=== PATIENT | male | born 1935 | race Caucasian/White ===

== ENCOUNTER → 2017-03-24 | Day surgery (SDC) | payer OTHER ==
[~2017-03-24] MED LIST: ACETAMINOPHEN 1000 MG/100 ML 100 ML IV ONE; BP med; BUPIVACAINE/EPINEPHRINE 0.5% 50 ML VIAL ONE; KETOROLAC TROMETHAMINE 30 MG/ML (IVP) VIAL IV PUSH ONE; MIDAZOLAM HCL 2 MG/2 ML VIAL ONE; ONDANSETRON HCL 4 MG/2 ML VIAL IV PUSH ONE; PROPOFOL 500 MG/50 ML BTL IV ONE; ROSU5 PO; TAMS0.4C67 PO; TAMS5CAP PO; TRAM50TA PO; ceFAZolin INJ 1,000 MG VIAL ONE; cholesterol
--- NOTE | 2017-03-24 12:48 | TN ---
cc: VENU HUGHES M.D. DATE OF SURGERY 03/24/2017 PREOPERATIVE DIAGNOSIS Bilateral inguinal hernia left greater than right. POSTOPERATIVE DIAGNOSIS Bilateral inguinal hernia left greater than right. PROCEDURE Repair of bilateral inguinal hernia laparoscopic with mesh. ANESTHESIA General SURGEON Dr. Hughes INDICATIONS This is a pleasant 81-year-old gentleman who has fairly symptomatic inguinal hernias. Plans were made for above. PROCEDURE The patient taken to the operating room, placed in the supine position. After anesthesia, his abdomen was prepped with Betadine, time-out was done. We make an incision just below the umbilicus. We dissect down to the abdominal fascia, get in the preperitoneal space. The dissecting balloon was then placed in the preperitoneal space and pumped up with 40 pumps on the balloon. This was all done under videoscopic surveillance. The balloon trocar was removed. The dissecting balloon was removed and then the balloon trocar was placed and the preperitoneal space was insufflated up to 14 mmHg pressure. We first directed our attention to the left side where a moderate-sized hernia sac is seen indirect type which is completely reduced with a cord lipoma. A piece of polypropylene mesh 3 x 6 cut with a slit, we obtained a posterior window and the mesh was then placed and secured to the pubic tubercle, Shiraz's ligament and out laterally along the anterior abdominal wall. Tails were then secured to themselves to the anterior abdominal wall avoiding the epigastric vessel. The tacks on the lateral were placed to avoid the femoral cutaneous nerves. We then direct our attention to the right side. There was a smaller hernia somewhat scarred in. We were able to completely reduce this. He has indirect and a direct component. Cord lipoma is removed. We then place a similar cut piece of mesh securing to the pubic tubercle to the posterior window and tacking it to the anterior abdominal wall avoiding epigastric vessel. After this was done, we then checked our dissection site. There was excellent hemostasis. We placed 20 cc of Marcaine in the preperitoneal space. The trocars removed. The fascia at the umbilicus is closed with a 0 Vicryl and skin is closed with 4-0 Vicryl. Steri-Strips applied. Sterile bandage applied. The patient tolerated the procedure well and had no immediate postop complications. MD BATOOL Henderson/DJL /12:35 PM /12:39 PM
== END | disposition home or self-care (01) ==
LOC: ESDC 08:34
PROVIDERS: ATTEND Surgery
DX: K40.20 Bilateral inguinal hernia, without obstruction or gangrene, not specified as recurrent (principal)
CPT/HCPCS: 00840; 49650; C1727; C1781; J0131; J0690; J1885; J2250; J2405; J3010

== ENCOUNTER 2017-03-25 05:21 | Emergency (ER) | payer OTHER ==
[~2017-03-25] VITALS: Ht 177.8 cm; Wt 82.0 kg
[~2017-03-25 05:21] MED LIST changes: -ACETAMINOPHEN 1000 MG/100 ML 100 ML IV ONE; -BP med; -BUPIVACAINE/EPINEPHRINE 0.5% 50 ML VIAL ONE; -KETOROLAC TROMETHAMINE 30 MG/ML (IVP) VIAL IV PUSH ONE; -MIDAZOLAM HCL 2 MG/2 ML VIAL ONE; -ONDANSETRON HCL 4 MG/2 ML VIAL IV PUSH ONE; -PROPOFOL 500 MG/50 ML BTL IV ONE; -TAMS5CAP PO; -ceFAZolin INJ 1,000 MG VIAL ONE; -cholesterol
[2017-03-25 05:28] VITALS: BP 178/86; PULSE 70; RESP 18; TEMP 97.6; O2SAT 97
[2017-03-25] MEDS ORDERED: TAMS5CAP PO (05:35)
--- NOTE | 2017-03-25 05:46 | PD ---
HPI Chief Complaint: Complaint Time Seen by Provider: 05:39 Travel History International Travel<30 days: No Contact w/Intl Traveler<30days: No Traveled to known affect area: No History of Present Illness HPI The patient is a 81-year-old male that had surgery (bilateral inguinal hernia repair under laparoscopic technique) under general anesthesia on Thursday- yesterday. He has not been able to urinate since around 6 PM yesterday. He feels bladder distention. This has happened 2 times in the past with general anesthesia. He states he usually regains bladder function a day or 2 later. He denies any significant pain other than the pain from distention. He denies any fever or flank pain. He denies any nausea, vomiting or diarrhea. PFSH Past Medical History High Cholesterol: Yes Diminished Hearing: No Genitourinary: Yes (ENLARGED PROSTATE) Integumentary: Yes (GRAFTS) Immunizations Current: Yes PNEUMOCCOCAL Vaccine (Year): 2 Past Surgical History Abdominal Surgery: Yes (SCAR TISSUE REMOVED FROM LOWER INTESTINE- 2008 ) Other Surgery: Yes (SKIN GRAFTS) Social History Alcohol Use: No Tobacco Use: No Substance Use: No Allergies-Medications (Allergen,Severity, Reaction): Coded Allergies: No Known Allergies (Verified , 03/25/17) Reported Meds & Prescriptions Reported Meds & Active Scripts Active Reported Flomax (Tamsulosin HCl) 0.4 Mg Cap 0.4 Mg PO HS Review of Systems Except as stated in HPI: all other systems reviewed are Neg Physical Exam Narrative GENERAL: Well-nourished, well-developed patient in moderate to severe distress with his bladder distention. His vital signs show temperature 97.6 and blood pressure 178/86 but otherwise normal. SKIN: Focused skin assessment warm/dry. HEAD: Normocephalic. EYES: No scleral icterus. No injection or drainage. NECK: Supple, trachea midline. No JVD or lymphadenopathy. CARDIOVASCULAR: Regular rate and rhythm without murmurs, gallops, or rubs. RESPIRATORY: Breath sounds equal bilaterally. No accessory muscle use. GASTROINTESTINAL: Abdomen soft, non-tender except for the bladder area which causes discomfort with any pressure, nondistended. The bladder is distended. MUSCULOSKELETAL: No cyanosis, or edema. BACK: Nontender without obvious deformity. No CVA tenderness. Data Data Last Documented VS Vital Signs Date Time Temp Pulse Resp B/P (MAP) Pulse Ox O2 Delivery O2 Flow Rate FiO2 03/25/17 06:35 70 18 98 03/25/17 05:28 97.6 Orders Orders Complete Blood Count With Diff (03/25/17 05:39) Basic Metabolic Panel (Bmp) (03/25/17 05:39) Urinalysis - C+S If Indicated (03/25/17 05:39) Urinary Catheter Insert/Apply (03/25/17 05:48) Labs Laboratory Tests Test 03/25/17 05:45 03/25/17 06:19 Blood Urea Nitrogen 10 MG/DL Creatinine 0.91 MG/DL Random Glucose 102 MG/DL Calcium Level 8.3 MG/DL Sodium Level 136 MEQ/L Potassium Level 3.9 MEQ/L Chloride Level 102 MEQ/L Carbon Dioxide Level 27.6 MEQ/L Anion Gap 6 MEQ/L Estimat Glomerular Filtration Rate 80 ML/MIN MDM Medical Decision Making Medical Screen Exam Complete: Yes Emergency Medical Condition: Yes Medical Record Reviewed: Yes Interpretation(s) Over 700 cc was recovered from the bladder after the Perez was put in. The urine showed 100 protein, large occult blood but is otherwise negative and culture is not indicated. Differential Diagnosis Bladder atony from anesthesia medications, prostatic urethral obstruction, urethral stricture Narrative Course The patient has bladder atony from anesthesia. This is happened 2 times before and this appears to be the third time. The patient states that every time he gets General Anesthesia this happens. He states that he will regain function of his bladder and about a day or 2 we will leave the catheter in for several days. He will then return to emergency department and have the catheter removed. Diagnosis Primary Impression: Bladder atony Additional Instructions: As we discussed, keep the Perez catheter in for a day or 2 until you feel that your bladder has "woken up". At that time return to the emergency department and we will remove the Perez catheter. Disposition: 01 DISCHARGE HOME Condition: Stable Murali Cotto MD Mar 25, 2017 05:46
[2017-03-25 06:31] LABS: BLOOD, URINE LARGE (NEG); GLUCOSE,URINE NEG (NEG); KETONE, URINE NEG (NEG); NITRITE,URINE NEG (NEG)
[2017-03-25 06:40] LABS: MUCUS URINE FEW /lpf (OCC); URINE COLOR YELLOW (YELLW/STRAW)
[2017-03-25 06:41] LABS: BACTERIA, URINE OCC /hpf; COMMENT (UR) CULT NOT INDICATED; CULTURE IF INDICATED CULT NOT INDICATED; RBC, URINE INNUM /hpf (0-3); SQUAMOUS EPITHELIAL CELL URINE 0-5 /hpf (0-5)
== END 2017-03-25 06:48 | disposition home or self-care (01) ==
LOC: PHED 05:21
DX: N32.89 Other specified disorders of bladder (principal); E78.00 Pure hypercholesterolemia, unspecified; N40.1 Benign prostatic hyperplasia with lower urinary tract symptoms
CPT/HCPCS: 51702; 80048; 81001

== ENCOUNTER 2017-03-26 08:31 | Emergency (ER) | payer OTHER ==
[~2017-03-26] VITALS: Ht 177.8 cm; Wt 81.0 kg
[~2017-03-26 08:31] MED LIST changes: -ROSU5 PO; -TAMS0.4C67 PO; +TAMS5CAP PO; -TRAM50TA PO
[2017-03-26 08:36] VITALS: BP 175/77; PULSE 67; RESP 16; TEMP 97.8; O2SAT 96
--- NOTE | 2017-03-26 08:49 | PD ---
HPI Chief Complaint: Complaint Time Seen by Provider: 08:40 Travel History International Travel<30 days: No Contact w/Intl Traveler<30days: No Traveled to known affect area: No History of Present Illness HPI This is a 81-year-old male who had a bilateral inguinal hernia repair on March [address] Hughes who had acute urinary retention following his surgery. He had a Perez catheter placed by Dr. Cotto on March 25. He is here because he wants to try to get the catheter taken out. He feels like he is able to void. He's had trouble with urinary retention in the past. He takes Flomax in the evenings. PFSH Past Medical History High Cholesterol: Yes Diminished Hearing: No Genitourinary: Yes (ENLARGED PROSTATE) Integumentary: Yes (GRAFTS) Immunizations Current: Yes Influenza Vaccination: No PNEUMOCCOCAL Vaccine (Year): 2 ?: Not Past Surgical History Abdominal Surgery: Yes (SCAR TISSUE REMOVED FROM LOWER INTESTINE- 2008 ) Other Surgery: Yes (SKIN GRAFTS. HERNIA REPAIR) Social History Alcohol Use: No Tobacco Use: No Substance Use: No Allergies-Medications (Allergen,Severity, Reaction): Coded Allergies: No Known Allergies (Verified , 03/26/17) Reported Meds & Prescriptions Reported Meds & Active Scripts Active Reported Flomax (Tamsulosin HCl) 0.4 Mg Cap 0.4 Mg PO HS Review of Systems General / Constitutional: No: Fever, Chills Cardiovascular: No: Chest Pain or Discomfort Physical Exam Narrative GENERAL: Well-appearing, no acute distress, nontoxic SKIN: Warm and dry. HEAD: Atraumatic. Normocephalic. ENT: No nasal bleeding or discharge. Moist mucous membranes MUSCULOSKELETAL: No obvious deformities. NEUROLOGICAL: Awake and alert. No obvious cranial nerve deficits. Moving all extremities. PSYCHIATRIC: Appropriate mood and affect; insight and judgment normal. Data Data Last Documented VS Vital Signs Date Time Temp Pulse Resp B/P (MAP) Pulse Ox O2 Delivery O2 Flow Rate FiO2 03/26/17 08:36 97.8 67 16 175/77 (109) 96 Room Air MDM Medical Decision Making Medical Screen Exam Complete: Yes Emergency Medical Condition: Yes Differential Diagnosis Urinary retention Narrative Course This is a 81-year-old male who presents to the emergency department having had a catheter placed after inguinal hernia repair. He is here this morning requesting the catheter out. It Hasn't been in that long that he is very insistent that we take it out. He otherwise has no complaints. He is well- appearing. Pt. will be advised to follow up with his urologist. Diagnosis Primary Impression: Urinary retention Patient Instructions: General Instructions Additional Instructions: If you develop fever, persistent vomiting, back pain, or inability to eat return to the emergency department as your urine infection may have progressed to a kidney infection. Complete your antibiotics as prescribed. Stay well hydrated with Gatorade or water. Followup with your primary care physician in 2-3 days if your symptoms have not resolved. Med/Other Pt SpecificInfo: No Change to Meds Disposition: 01 DISCHARGE HOME Condition: Stable Isa Arredondo MD Mar 26, 2017 08:48
== END 2017-03-26 08:56 | disposition home or self-care (01) ==
LOC: PHED 08:31
DX: N40.1 Benign prostatic hyperplasia with lower urinary tract symptoms (principal); R33.8 Other retention of urine; E78.00 Pure hypercholesterolemia, unspecified
CPT/HCPCS: 99281

== ENCOUNTER 2017-03-30 20:30 | Emergency (ER) | payer OTHER ==
[~2017-03-30] VITALS: Ht 177.8 cm; Wt 81.1 kg
[2017-03-30 20:32] VITALS: BP 211/88; PULSE 61; RESP 20; TEMP 98.4; O2SAT 98
[2017-03-30] MEDS ORDERED: cholesterol (20:50)
[2017-03-30] MEDS ORDERED: BP med (20:50)
--- NOTE | 2017-03-30 20:56 | PD ---
HPI Chief Complaint: Complaint Time Seen by Provider: 20:40 Travel History International Travel<30 days: No Contact w/Intl Traveler<30days: No Traveled to known affect area: No History of Present Illness HPI dr deshpande surgeon....patient had bilateral inguinal hernia repair a few days ago, over the last 2 days has noted bruising moving down from abdomen to "balls " and they are getting "larger". per patient just a "little" discomfort no major testicular pain. PFSH Past Medical History High Cholesterol: Yes Diminished Hearing: No Genitourinary: Yes (ENLARGED PROSTATE) Integumentary: Yes (GRAFTS) Immunizations Current: Yes Tetanus Vaccination: > 5 Years Influenza Vaccination: No PNEUMOCCOCAL Vaccine (Year): 2 Past Surgical History Abdominal Surgery: Yes (SCAR TISSUE REMOVED FROM LOWER INTESTINE- 2008 ) Other Surgery: Yes (SKIN GRAFTS. HERNIA REPAIR) Social History Alcohol Use: No Tobacco Use: No Substance Use: No Allergies-Medications (Allergen,Severity, Reaction): Coded Allergies: No Known Allergies (Verified , 03/30/17) Reported Meds & Prescriptions Reported Meds & Active Scripts Active Reported [cholesterol] [BP med] Flomax (Tamsulosin HCl) 0.4 Mg Cap 0.4 Mg PO HS Review of Systems Except as stated in HPI: all other systems reviewed are Neg Genitourinary: Positive: Other (see hpi) Physical Exam Narrative GENERAL: SKIN: Warm and dry. HEAD: Atraumatic. Normocephalic. EYES: Pupils equal and round. No scleral icterus. No injection or drainage. ENT: No nasal bleeding or discharge. Mucous membranes pink and moist. NECK: Trachea midline. No JVD. CARDIOVASCULAR: Regular rate and rhythm. RESPIRATORY: No accessory muscle use. Clear to auscultation. Breath sounds equal bilaterally. GASTROINTESTINAL: Abdomen soft, non-tender, nondistended. laparoscopic wounds healing well and without drainage. scrotum is echymotic but intact cremasteric reflex, normal testicular lie, no testicular tenderness to palpation MUSCULOSKELETAL: Extremities without clubbing, cyanosis, or edema. No obvious deformities. NEUROLOGICAL: Awake and alert. No obvious cranial nerve deficits. Motor grossly within normal limits. Five out of 5 muscle strength in the arms and legs. Normal speech. PSYCHIATRIC: Appropriate mood and affect; insight and judgment normal. Data Data Last Documented VS Vital Signs Date Time Temp Pulse Resp B/P (MAP) Pulse Ox O2 Delivery O2 Flow Rate FiO2 03/30/17 20:32 98.4 61 20 211/88 (129) 98 Orders Orders Us Testicles W Doppler (03/30/17 20:48) MDM Medical Decision Making Medical Screen Exam Complete: Yes Emergency Medical Condition: Yes Medical Record Reviewed: Yes Differential Diagnosis testicular torsion v hydrocele v scrotal echymosis post op Narrative Course after ultrasound, no e/o torsion, epididymitis or major hydrocele. patient will be d/c with gravity dependant echymosis post op from inguinal hernia repair Diagnosis Primary Impression: Bruise of scrotum Qualified Codes: S30.22XS - Contusion of scrotum and testes, sequela Patient Instructions: Ecchymosis (ED), General Instructions Disposition: 01 DISCHARGE HOME Condition: Stable Orion Olvera MD Mar 30, 2017 20:56
--- NOTE | 2017-03-30 21:55 | RADRPT ---
EXAM DATE/TIME: 03/30/2017 21:16 [facility] COMPARISON: No previous studies available for comparison. INDICATIONS : Testicle pain. MEDICAL HISTORY : Hypercholesterolemia. Benign prostatic hyperplasia, (BPH) SURGICAL HISTORY : Left leg surgery. Hernia repair. ENCOUNTER: Initial ACUITY: 4 - 6 days PAIN SCORE: 5/10 LOCATION: Bilateral testicles. MEASUREMENTS: RIGHT TESTICLE: 3.8 x 2.5 x 2.8cm LEFT TESTICLE: 3.1 x 2.1 x 3.3cm FINDINGS: RIGHT TESTICLE: Homogeneous echotexture without intra or extratesticular mass. Blood flow is symmetric and within no rmal limits. There is no significant hydrocele. There are multiple small varices. Multiple small cyst s are noted in the head of the epididymis. LEFT TESTICLE: Homogeneous echotexture without intra or extratesticular mass. Blood flow is symmetric and within no rmal limits. There is no significant hydrocele. There are multiple small varices. Multiple small cyst s are noted in the head of the epididymis. SCROTUM: Small calcification is noted in the right side of the scrotum. CONCLUSION: 1. The testicles are intrinsically normal in appearance. 2. Lateral varices. 3. Multiple small cysts in the head of the epididymis left greater than right. Mic Silverio MD on March 30, 2017 at 21:50 Board Certified Radiologist. This report was verified electronically.
[2017-03-30 22:07] VITALS: BP 188/90
== END 2017-03-30 22:18 | disposition home or self-care (01) ==
LOC: PHED 20:30
DX: N99.821 Postprocedural hemorrhage of a genitourinary system organ or structure following other procedure (principal); E78.00 Pure hypercholesterolemia, unspecified; Z98.890 Other specified postprocedural states; Z87.438 Personal history of other diseases of male genital organs; Z87.2 Personal history of diseases of the skin and subcutaneous tissue
CPT/HCPCS: 76870; 93975

== ENCOUNTER 2017-07-19 01:05 | Emergency (ER) | payer OTHER ==
[~2017-07-19] VITALS: Ht 177.8 cm; Wt 85.0 kg
[~2017-07-19 01:05] MED LIST changes: +BP med; +cholesterol
[2017-07-19 01:12] VITALS: BP 214/91; PULSE 54; RESP 20; TEMP 97.4; O2SAT 97
[2017-07-19 01:25] VITALS: BP 179/60
[2017-07-19 01:41] LABS: BILIRUBIN, URINE NEG (NEG); BLOOD, URINE NEG (NEG); GLUCOSE,URINE NEG (NEG); KETONE, URINE NEG (NEG); NITRITE,URINE NEG (NEG); URINE LEUKOCYTE ESTERASE NEG (NEG)
[2017-07-19 01:49] LABS: URINE COLOR STRAW (YELLW/STRAW)
[2017-07-19 01:50] LABS: RBC, URINE 0-3 /hpf (0-3); SQUAMOUS EPITHELIAL CELL URINE 0-5 /hpf (0-5); WBC, URINE 0-2 /hpf (0-5)
--- NOTE | 2017-07-19 03:28 | PD ---
HPI Chief Complaint: Complaint Time Seen by Provider: 01:13 Travel History International Travel<30 days: No Contact w/Intl Traveler<30days: No Traveled to known affect area: No History of Present Illness HPI This is a 81-year-old male who presents to the emergency department with a history of BPH with increasing difficulty urinating for a week. He says his stream has been very light and he feels pressure in his lower abdomen, positive , mild, associated with urinary frequency. He is required Perez catheters in the past. He is still able to urinate but not much. He denies any fevers or chills. PFSH Past Medical History High Cholesterol: Yes Diminished Hearing: No Genitourinary: Yes (ENLARGED PROSTATE) Integumentary: Yes (GRAFTS) Immunizations Current: Yes Tetanus Vaccination: > 5 Years Influenza Vaccination: No PNEUMOCCOCAL Vaccine (Year): 2 Past Surgical History Abdominal Surgery: Yes (SCAR TISSUE REMOVED FROM LOWER INTESTINE- 2008 ) Other Surgery: Yes (SKIN GRAFTS. HERNIA REPAIR) Social History Alcohol Use: No Tobacco Use: No Substance Use: No Allergies-Medications (Allergen,Severity, Reaction): Coded Allergies: No Known Allergies (Verified Adverse Reaction, Unknown, 07/19/17) Reported Meds & Prescriptions Reported Meds & Active Scripts Active Reported [cholesterol] [BP med] Flomax (Tamsulosin HCl) 0.4 Mg Cap 0.4 Mg PO HS Review of Systems Except as stated in HPI: all other systems reviewed are Neg Physical Exam Narrative GENERAL:Well appearing, no acute distress SKIN: Focused skin assessment warm and dry. HEAD: Atraumatic. Normocephalic. EYES: Pupils equal and round. No injection or drainage. ENT: Moist mucous membranes NECK: Trachea midline. CARDIOVASCULAR: Regular rate and rhythm. No murmur appreciated. RESPIRATORY: Clear to auscultation. Breath sounds equal bilaterally. GASTROINTESTINAL: Abdomen soft, mildly tender to palpation in the suprapubic region without rebound or guarding. MUSCULOSKELETAL: No obvious deformities. NEUROLOGICAL: Awake and alert. No obvious cranial nerve deficits. Moving all extremities. PSYCHIATRIC: Appropriate mood and affect; insight and judgment normal. Data Data Last Documented VS Vital Signs Date Time Temp Pulse Resp B/P (MAP) Pulse Ox O2 Delivery O2 Flow Rate FiO2 07/19/17 01:25 179/60 (99) 12/24/17 01:12 97.4 54 20 97 Orders Orders Urinalysis - C+S If Indicated (07/19/17 01:34) Ed Poc Ultrasound (07/19/17 ) Urinary Catheter Insert/Apply (07/19/17 02:48) Labs Laboratory Tests Test 07/19/17 01:09 Urine Color STRAW Urine Turbidity CLEAR Urine pH 6.0 Urine Specific [place] 1.007 Urine Protein NEG mg/dL Urine Glucose (UA) NEG mg/dL Urine Ketones NEG mg/dL Urine Occult Blood NEG Urine Nitrite NEG Urine Bilirubin NEG Urine Leukocyte Esterase NEG Urine RBC 0-3 /hpf Urine WBC 0-2 /hpf Urine Squamous Epithelial Cells 0-5 /hpf Urine Bacteria NONE /hpf Microscopic Urinalysis Comment CULT NOT INDICATED MDM Medical Decision Making Medical Screen Exam Complete: Yes Emergency Medical Condition: Yes Interpretation(s) urinalysis negative for infection Differential Diagnosis Acute urinary retention, BPH, urinary tract infection Narrative Course This is a 81-year-old male who presents to the emergency department with difficulty urinating and abdominal discomfort. [id number] ultrasound demonstrates a distended bladder. Perez catheter was placed which drained 550 cc of urine. I recommended the patient keep the Perez catheter and that he is traveling and says this won't be possible. He is still urinating some. Perez catheter was removed and he was advised to follow-up with Dr. Vaughan as soon as possible. Procedures Procedure Narrative poc us: distended bladder Diagnosis Primary Impression: Urinary retention due to benign prostatic hyperplasia Patient Instructions: General Instructions Additional Instructions: If you develop severe abdominal pain or inability to urinate return to the emergency department. Follow up with Dr. Vaughan as soon as possible. Med/Other Pt SpecificInfo: No Change to Meds Disposition: 01 DISCHARGE HOME Condition: Stable Isa Arredondo MD Jul 19, 2017 03:28
[2017-07-19 03:29] VITALS: BP 205/86
== END 2017-07-19 03:36 | disposition home or self-care (01) ==
LOC: PHED 01:05
DX: N40.1 Benign prostatic hyperplasia with lower urinary tract symptoms (principal); R33.8 Other retention of urine; E78.00 Pure hypercholesterolemia, unspecified
CPT/HCPCS: 51702; 81001

== ENCOUNTER 2017-11-03 00:27 | Observation (INO) | payer OTHER ==
[2017-11-03] VITALS (23 sets, daily range): BP systolic 139–213; BP diastolic 64–93; PULSE 42–68; RESP 16–25; TEMP 96–98.1; O2SAT 96–100
[~2017-11-03] VITALS: Ht 152.4 cm; Wt 73.1 kg
--- NOTE | 2017-11-03 00:56 | PD ---
HPI Chief Complaint: Complaint Time Seen by Provider: 00:52 Travel History International Travel<30 days: No Contact w/Intl Traveler<30days: No Traveled to known affect area: No History of Present Illness HPI The patient is an 82-year-old male that complaints of left arm weakness for about 15 minutes today. After the 15 minutes he has complete strength. He is right-hand dominant. He denies any left leg weakness. He denies any headache. He states he did not wake up with this, his symptoms began as he was eating dinner. He also has some blurred vision in both eyes which has been going on for weeks and got slightly worse tonight. He did not take any aspirin. PFSH Past Medical History High Cholesterol: Yes Diminished Hearing: No Genitourinary: Yes (ENLARGED PROSTATE) Integumentary: Yes (GRAFTS) Immunizations Current: Yes PNEUMOCCOCAL Vaccine (Year): 2 Past Surgical History Abdominal Surgery: Yes (SCAR TISSUE REMOVED FROM LOWER INTESTINE- 2008 ) Other Surgery: Yes (SKIN GRAFTS. HERNIA REPAIR) Social History Alcohol Use: No Tobacco Use: No Substance Use: No Allergies-Medications (Allergen,Severity, Reaction): Coded Allergies: No Known Allergies (Verified Allergy, Unknown, 11/03/17) Reported Meds & Prescriptions Reported Meds & Active Scripts Active Reported Atorvastatin (Atorvastatin Calcium) 40 Mg Tab 40 Mg PO HS Proscar (Finasteride) 5 Mg Tab 5 Mg PO DAILY Do not crush. Felodipine ER (Felodipine) 5 Mg Zulma 5 Mg PO DAILY Macrobid (Nitrofurantoin Monoh/Nitrofur Macro) 100 Mg Cap 100 Mg PO BID Review of Systems Except as stated in HPI: all other systems reviewed are Neg Physical Exam Narrative GENERAL: The patient is alert, oriented 3 in no apparent distress. His vital signs show blood pressure 196/84 but otherwise are normal. SKIN: Focused skin assessment warm/dry. HEAD: Atraumatic. Normocephalic. EYES: Pupils equal and round. No scleral icterus. No injection or drainage. Pupils equal react light extraocular movements are normal. ENT: No nasal bleeding or discharge. Mucous membranes pink and moist. NECK: Trachea midline. No JVD. CARDIOVASCULAR: Regular rate and rhythm. No murmur appreciated. RESPIRATORY: No accessory muscle use. Clear to auscultation. Breath sounds equal bilaterally. GASTROINTESTINAL: Abdomen soft, non-tender, nondistended. Hepatic and splenic margins not palpable. MUSCULOSKELETAL: No obvious deformities. No clubbing. No cyanosis. No edema. NEUROLOGICAL: Awake and alert. No obvious cranial nerve deficits. Motor grossly within normal limits. Normal speech. Bilateral handgrips are normal, trapezius testing is normal bilaterally. Good pulses are present on the left radial area. The left hand shows good warmth and good color. PSYCHIATRIC: Appropriate mood and affect; insight and judgment normal. Data Data Last Documented VS Vital Signs Date Time Temp Pulse Resp B/P (MAP) Pulse Ox O2 Delivery O2 Flow Rate FiO2 11/03/17 02:09 50 16 186/71 (109) 98 Room Air 11/03/17 00:32 98.1 Orders Orders Complete Blood Count With Diff (11/03/17 00:52) Basic Metabolic Panel (Bmp) (11/03/17 00:52) Ct Brain W/O Iv Contrast(Rout) (11/03/17 00:52) Electrocardiogram (11/03/17 02:03) Place In Observation (11/03/17 ) Vital Signs (Adult) Q2HX12,Q4H (11/03/17 02:24) Nih Stroke Scale - Nihss .Daily (11/03/17 02:24) Neuro Checks Q2HX12,Q4H (11/03/17 02:24) Notify Dr: Other (11/03/17 02:24) Remove Urinary Catheter .ONCE (11/03/17 02:24) Ot Request For Service (11/03/17 02:24) Pt Request For Service (11/03/17 02:24) Case Management Consult (11/03/17 ) Activity Oob Ad Ariadna (11/03/17 02:24) Nursing Bedside Swallow Assess .ONCE (11/03/17 02:24) Scd Bilateral/Knee High JHONNY.QSHIFT (11/03/17 02:24) Diet Npo (11/03/17 Breakfast) Complete Blood Count With Diff (11/04/17 06:00) Hemoglobin (Hgb) A1c (11/03/17 02:24) Basic Metabolic Panel (Bmp) (11/04/17 06:00) Lipid Profile (11/04/17 06:00) Echo 2d Comp With Doppler (11/03/17 ) ^ Hold Medication (11/03/17 02:24) Sodium Chloride 0.9% Flush (Ns Flush) (11/03/17 09:00) Sodium Chloride 0.9% Flush (Ns Flush) (11/03/17 02:30) Aspirin (Aspirin) (11/03/17 09:00) Bedside Glucose JHONNY.CSUGAR (11/03/17 02:24) ^ Discontinue Insulin Orders (11/03/17 02:24) Insulin Aspart Supplemtl Scale (Novolog (11/03/17 08:00) Dextrose 50% In Sarath (Vial) Inj (D50w (Vi (11/03/17 02:30) Glucagon Inj (Glucagon Inj) (11/03/17 02:30) Commission Clerk / Telemetry JHONNY.Q8H (11/03/17 02:24) Consult Stroke Navigator (11/03/17 ) Heparin Inj (Heparin Inj) (11/03/17 06:00) Aspirin (Aspirin) (11/03/17 02:30) Admit Order (Ed Use Only) (11/03/17 02:27) Troponin I (11/03/17 01:30) Labs Laboratory Tests Test 11/03/17 01:30 White Blood Count 6.1 TH/MM3 Red Blood Count 4.57 MIL/MM3 Hemoglobin 13.2 GM/DL Hematocrit 39.2 % Mean Corpuscular Volume 85.8 FL Mean Corpuscular Hemoglobin 28.8 PG Mean Corpuscular Hemoglobin Concent 33.6 % Red Cell Distribution Width 14.5 % Platelet Count 216 TH/MM3 Mean Platelet Volume 7.5 FL Neutrophils (%) (Auto) 55.9 % Lymphocytes (%) (Auto) 23.0 % Monocytes (%) (Auto) 11.0 % Eosinophils (%) (Auto) 9.5 % Basophils (%) (Auto) 0.6 % Neutrophils # (Auto) 3.4 TH/MM3 Lymphocytes # (Auto) 1.4 TH/MM3 Monocytes # (Auto) 0.7 TH/MM3 Eosinophils # (Auto) 0.6 TH/MM3 Basophils # (Auto) 0.0 TH/MM3 CBC Comment DIFF FINAL Differential Comment Blood Urea Nitrogen 20 MG/DL Creatinine 0.93 MG/DL Random Glucose 92 MG/DL Calcium Level 8.5 MG/DL Sodium Level 139 MEQ/L Potassium Level 3.9 MEQ/L Chloride Level 106 MEQ/L Carbon Dioxide Level 26.3 MEQ/L Anion Gap 7 MEQ/L Estimat Glomerular Filtration Rate 78 ML/MIN Troponin I LESS THAN 0.02 NG/ML MDM Medical Decision Making Medical Screen Exam Complete: Yes Emergency Medical Condition: Yes Medical Record Reviewed: Yes Interpretation(s) The CBC is normal. The basic metabolic profile shows a BUN of 20, GFR of 78 but is otherwise unremarkable. The EKG shows sinus rhythm and no acute ST elevation or depression. Differential Diagnosis TIA, conversion reaction, venous insufficiency, arterial insufficiency, CVA Narrative Course The patient possibly has a TIA. The patient states his left arm did not "fall asleep". It had sudden onset of symptoms and the strength came back somewhat gradually. I discussed the patient with Dr. Silva, he will be admitted to her. He will get aspirin. Physician Communication Physician Communication I discussed the patient with Dr. Silva. Diagnosis Primary Impression: TIA (transient ischemic attack) Admitting Information Admitting Physician Requests: Admit Murali Cotto MD Nov 03, 2017 00:56
[2017-11-03 01:39] LABS: AUTOMATED NEUTROPHIL # 3.4 TH/MM3 (1.8-7.7); BASOPHIL % 0.6 % (0.0-2.0); EOSINOPHIL # 0.6 TH/MM3 (0-0.4); EOSINOPHIL % 9.5 % (0.0-4.0); HEMATOCRIT 39.2 % (39.0-51.0); HEMOGLOBIN 13.2 GM/DL (13.0-17.0); LYMPHOCYTE # 1.4 TH/MM3 (1.0-4.8); MEAN CELL VOLUME 85.8 FL (80.0-100.0); MEAN CORPUSCULAR HEMOGLOBIN 28.8 PG (27.0-34.0); MEAN CORPUSCULAR HGB CONC 33.6 % (32.0-36.0); MEAN PLATELET VOLUME 7.5 FL (7.0-11.0); MONOCYTE # 0.7 TH/MM3 (0-0.9); NEUT % 55.9 % (16.0-70.0); PLATELET COUNT 216 TH/MM3 (150-450); RED BLOOD COUNT 4.57 MIL/MM3 (4.50-5.90); RED CELL DISTRIBUTION WIDTH 14.5 % (11.6-17.2); WHITE BLOOD COUNT 6.1 TH/MM3 (4.0-11.0)
[2017-11-03 01:51] LABS: CHLORIDE 106 MEQ/L (98-107); SODIUM (NA) 139 MEQ/L (136-145)
[2017-11-03 01:54] LABS: CALCIUM 8.5 MG/DL (8.5-10.1)
[2017-11-03 01:55] LABS: BICARBONATE 26.3 MEQ/L (21.0-32.0); BLOOD UREA NITROGEN 20 MG/DL (7-18); GLUCOSE,RANDOM 92 MG/DL (74-106)
[2017-11-03 01:58] LABS: CREATININE 0.93 MG/DL (0.60-1.30); GLOMERULAR FILTRATION RATE 78 ML/MIN (>89)
--- NOTE | 2017-11-03 02:03 | RADRPT ---
EXAM DATE/TIME: 11/03/2017 01:12 [facility] COMPARISON: No previous studies available for comparison. INDICATIONS : Evaluate for cerebrovascular accident. Upper left extremity weakness. RADIATION DOSE: 58.13 CTDIvol (mGy) MEDICAL HISTORY : None SURGICAL HISTORY : None. ENCOUNTER: Initial ACUITY: 1 day PAIN SCALE: 0/10 LOCATION: cranial TECHNIQUE: Multiple contiguous axial images were obtained of the head. Using automated exposure control and adj ustment of the mA and/or kV according to patient size, radiation dose was kept as low as reasonably a chievable to obtain optimal diagnostic quality images. DICOM format image data is available electro nically for review and comparison. FINDINGS: CEREBRUM: The ventricles are normal for age. No evidence of midline shift, mass lesion, hemorrhage or acute in farction. No extra-axial fluid collections are seen. POSTERIOR FOSSA: The cerebellum and brainstem are intact. The 4th ventricle is midline. The cerebellopontine angle i s unremarkable. EXTRACRANIAL: The visualized portion of the orbits is intact. SKULL: The calvaria is intact. No evidence of skull fracture. CONCLUSION: No acute intracranial disease. Jaspreet Petersen MD on November 03, 2017 at 2:01 Board Certified Radiologist. This report was verified electronically.
[2017-11-03] MEDS ORDERED: DEXTROSE 50% IN WATER 50 ML VIAL(D50) IV PUSH PRN (02:30)
[2017-11-03] MEDS ORDERED: SODIUM CHLORIDE 0.9% FLUSH 10 ML FLUSH IV FLUSH PRN (02:30)
[2017-11-03] MEDS ORDERED: ASPIRIN 325 MG TAB PO ONE (02:30)
[2017-11-03] MEDS ORDERED: GLUCAGON 1 MG/ML VIAL OTHER PRN (02:30)
[2017-11-03] MEDS ORDERED: PROS5TAB PO (02:44)
[2017-11-03] MEDS ORDERED: FELO5TAB PO (02:44)
[2017-11-03] MEDS ORDERED: ATOR40TA16 PO (02:44)
[2017-11-03] MEDS ORDERED: MACR100C2 PO (02:44)
[2017-11-03 03:01] LABS: TROPONIN I LESS THAN 0.02 NG/ML (0.02-0.05)
[2017-11-03] MEDS: HEPARIN SODIUM - SQ 10,000 UNITS/ML VIAL SQ SCH ×3 (05:40→21:01)
--- NOTE | 2017-11-03 07:35 | EKG ---
Date Performed: 11/03/2017 Time Performed: 02:22:22 PTAGE: 82 years EKG: Sinus rhythm MODERATE INTRAVENTRICULAR CONDUCTION DELAY NONSPECIFIC T-WAVE ABNORMALITY BORDERLINE ECG No signific ant change from prior electrocardiogram. PREVIOUS TRACING : 11/30/2008 17.26 DOCTOR: Mathieu Christianson Interpretating Date/Time 11/03/2017 07:35:23
[2017-11-03] MEDS: INSULIN ASPART SUPPLEMENTAL SCALE SQ SCH ×4 (08:00→21:00)
[2017-11-03] MEDS: ASPIRIN 325 MG TAB PO SCH (08:58)
[2017-11-03] MEDS: SODIUM CHLORIDE 0.9% FLUSH 10 ML FLUSH IV FLUSH SCH ×2 (08:58→21:01)
--- NOTE | 2017-11-03 10:08 | HHI.HP ---
[facility] Primary Care Physician Non-Staff Admission Diagnosis TIA Diagnoses: Chief Complaint: Left arm weakness Travel History International Travel<30 Days: No Contact w/Intl Traveler <30 Da: No Traveled to Known Affected Are: No History of Present Illness 82-year-old white male being admitted for suspected transient ischemic attack. Patient was in his usual state of health until sometime yesterday when he was eating a meal and suddenly noted having substantial left arm weakness, felt his arm drop and described it as a weight. He was unable to feed himself with his left arm. Denies having any leg deficits or any slurred speech or any facial droop. Denies having any acute vision changes. CT scan in the emergency room is negative for any acute issues. Review of Systems Except as stated in HPI: all other systems reviewed are Neg Past Family Social History Past Medical History Hyperlipidemia, BPH, inguinal hernias, arthritis Allergies: Coded Allergies: No Known Allergies (Verified Allergy, Unknown, 11/03/17) Family History Unspecified cancer in the family Social History Denies smoking or alcohol. 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 Physical Exam Vital Signs Vital Signs Date Time Temp Pulse Resp B/P (MAP) Pulse Ox O2 Delivery O2 Flow Rate FiO2 11/03/17 06:43 54 20 164/69 (100) 96 11/03/17 05:19 48 21 182/81 (114) 11/03/17 04:50 49 11/03/17 04:13 53 22 189/82 (117) 11/03/17 04:10 98.0 57 20 213/93 (133) 98 11/03/17 03:59 56 16 176/71 (106) 98 11/03/17 03:10 68 16 179/84 (115) 100 Room Air 11/03/17 02:09 50 16 186/71 (109) 98 Room Air 11/03/17 00:32 98.1 59 18 196/84 (121) 99 Physical Exam VS: afebrile GENERAL: Lying in bed, awake, no acute distress SKIN: Warm and dry. EYES: Pupils equal and round. No scleral icterus. No injection or drainage. ENT: No nasal bleeding or discharge. Mucous membranes pink and moist. CARDIOVASCULAR: Regular rate and rhythm. no murmurs RESPIRATORY: No accessory muscle use. Clear to auscultation. Breath sounds equal bilaterally. GASTROINTESTINAL: Abdomen soft, non-tender, nondistended. Extremities: No clubbing, cyanosis, or edema. No obvious deformities. MUSCULOSKELETAL: grossly intact ROM with 5/5 strength in upper and lower extremities proximally; adequate muscle bulk and tone for age and habitus NEUROLOGICAL: Awake and alert. No obvious cranial nerve deficits. No facial droop nor slurred speech noted. Intact symmetrical sensation to light finger touch over face, proximal arms, and feet. Diminished but symmetrical patellar reflexes bilaterally. PSYCHIATRIC: Appropriate mood and affect; insight and judgment normal. Laboratory Laboratory Tests Test 11/03/17 01:30 White Blood Count 6.1 Red Blood Count 4.57 Hemoglobin 13.2 Hematocrit 39.2 Mean Corpuscular Volume 85.8 Mean Corpuscular Hemoglobin 28.8 Mean Corpuscular Hemoglobin Concent 33.6 Red Cell Distribution Width 14.5 Platelet Count 216 Mean Platelet Volume 7.5 Neutrophils (%) (Auto) 55.9 Lymphocytes (%) (Auto) 23.0 Monocytes (%) (Auto) 11.0 Eosinophils (%) (Auto) 9.5 Basophils (%) (Auto) 0.6 Neutrophils # (Auto) 3.4 Lymphocytes # (Auto) 1.4 Monocytes # (Auto) 0.7 Eosinophils # (Auto) 0.6 Basophils # (Auto) 0.0 CBC Comment DIFF FINAL Differential Comment Blood Urea Nitrogen 20 Creatinine 0.93 Random Glucose 92 Calcium Level 8.5 Sodium Level 139 Potassium Level 3.9 Chloride Level 106 Carbon Dioxide Level 26.3 Anion Gap 7 Estimat Glomerular Filtration Rate 78 Troponin I LESS THAN 0.02 Result Diagram: 11/03/170 11/03/17129 Imaging Last Impressions Head CT 11/03/17 005 Signed Impressions: Service Date/Time: Friday, November 03, 2017 01:12 - CONCLUSION: No acute intracranial disease. MD Ramya Grey VTE Risk Assessment Caprini VTE Risk Assessment: Mod/High Risk (score >= 2) Caprini Risk Assessment Model Point Value = 1 Point Value = 2 Point Value = 3 Point Value = 5 Age 41-60 Minor surgery BMI > 25 kg/m2 Swollen legs Varicose veins or History of unexplained or recurrent spontaneous Oral contraceptives or hormone replacement Sepsis (< 1 month) Serious lung disease, including pneumonia (< 1 month) Abnormal pulmonary function Acute myocardial infarction Congestive heart failure (< 1 month) History of inflammatory bowel disease Medical patient at bed rest Age 61-74 Arthroscopic surgery Major open surgery (> 45 min) Laparoscopic surgery (> 45 min) Malignancy Confined to bed (> 72 hours) Immobilizing plaster cast Central venous access Age >= 75 History of VTE Family history of VTE Factor V Leiden Prothrombin [id number] Lupus anticoagulant Anticardiolipin antibodies Elevated serum homocysteine Heparin-induced thrombocytopenia Other congenital or acquired thrombophilia Stroke (< 1 month) Elective arthroplasty Hip, pelvis, or leg fracture Acute spinal cord injury (< 1 month) Prophylaxis Regimen Total Risk Factor Score Risk Level Prophylaxis Regimen 0-1 Low Early ambulation 2 Moderate Order ONE of the following: *Sequential Compression Device (SCD) *Heparin 5000 units SQ BID 3-4 Higher Order ONE of the following medications: *Heparin 5000 units SQ TID *Enoxaparin/Lovenox 40 mg SQ daily (WT < 150 kg, CrCl > 30 mL/min) *Enoxaparin/Lovenox 30 mg SQ daily (WT < 150 kg, CrCl > 10-29 mL/min) *Enoxaparin/Lovenox 30 mg SQ BID (WT < 150 kg, CrCl > 30 mL/min) AND/OR *Sequential Compression Device (SCD) 5 or more Highest Order ONE of the following medications: *Heparin 5000 units SQ TID (Preferred with Epidurals) *Enoxaparin/Lovenox 40 mg SQ daily (WT < 150 kg, CrCl > 30 mL/min) *Enoxaparin/Lovenox 30 mg SQ daily (WT < 150 kg, CrCl > 10-29 mL/min) *Enoxaparin/Lovenox 30 mg SQ BID (WT < 150 kg, CrCl > 30 mL/min) AND *Sequential Compression Device (SCD) Assessment and Plan Assessment and Plan Transient ischemic attack -Continue Lipitor and aspirin -CT head is negative. Independently reviewed EKG shows normal sinus rhythm, no A. fib -Echocardiogram, MRI brain, carotid ultrasounds -PT/OT -permissive HTN BPH - finasteride Anthony Coleman MD Nov 03, 2017 10:07
--- NOTE | 2017-11-03 12:56 | RADRPT ---
EXAM DATE/TIME: 11/03/2017 11:35 [facility] COMPARISON: No previous studies available for comparison. INDICATIONS : Transient ischemic attack. MEDICAL HISTORY : Hypercholesterolemia. Hypertension. Arthritis. SURGICAL HISTORY : Double hernia repair. Scar tissue removed from lower intestine. Right hand surgery. Arthroscopy, bila teral knee. Left knee replacement. Skin graft. ENCOUNTER: Initial ACUITY: 1 day PAIN SCORE: 0/10 LOCATION: Bilateral neck PEAK SYSTOLIC VELOCITIES (cm/sec): ICA/CCA RATIO: Right: 0.9 Left: 1.6 ICA: Right: 89 Left: 149 CCA: Right: 104 Left: 95 ECA: Right: 94 Left: 196 VERTEBRAL: Right: 50 antegrade Left: 59 antegrade Elevated flow velocities and ICA/CCA ratios have been found to correlate with increased degrees of vessel stenosis, calculated as percentage of diameter relative to a normal segment of distal ICA/CCA FINDINGS: RIGHT CAROTID: There is plaque at the common carotid artery and carotid bulb region. The waveforms are within irene l limits. LEFT CAROTID: There is plaque at the common carotid artery and carotid bulb region. There is elevated peak systoli c velocity in the left internal carotid artery. The waveforms are within normal limits. VERTEBRAL ARTERIES: Antegrade flow is seen in both vertebral arteries. MISCELLANEOUS: None. CONCLUSION: Plaques seen in the common carotid and carotid bulb regions bilaterally the more proximal left. There is elevated peak systolic velocity in left internal carotid artery. A mild stenosis may present. The carotid system could be better evaluated with a CTA of the neck. Rick Simpson MD on November 03, 2017 at 12:53 Board Certified Radiologist. This report was verified electronically.
--- NOTE | 2017-11-03 16:40 | ECHRPT ---
Indication: CVA/TIA CONCLUSIONS Technically very difficult study. Grossly left ventricular function appears to be normal. Regional wall motion abnormalities cannot be excluded. Wall thickness is measured at the upper limits of normal. Normal left ventricular size. The aortic valve is not well visualized. There is trace tricuspid valve regurgitation. The estimated pulmonary arterial pressure is 24 mmHg. BP: / HR: Rhythm: Technical Quality: FINDINGS LEFT VENTRICLE Technically very difficult study. Grossly left ventricular function appears to be normal. Regional wall motion abnormalities cannot be excluded. Wall thickness is measured at the upper limits of normal. Normal left ventricular size. RIGHT VENTRICLE Normal right ventricular size and systolic function. LEFT ATRIUM The left atrial size is normal. RIGHT ATRIUM The right atrial size is normal. ATRIAL SEPTUM Normal atrial septal thickness without atrial level shunting by limited color doppler interrogation. AORTA The aortic root and proximal ascending aorta are normal in size on limited imaging. MITRAL VALVE Structurally normal mitral valve. No mitral valve stenosis or regurgitation. AORTIC VALVE The aortic valve is not well visualized. TRICUSPID VALVE There is trace tricuspid valve regurgitation. The estimated pulmonary arterial pressure is 24 mmHg. PULMONARY VALVE The pulmonary valve is not well visualized. VESSELS The inferior vena cava is normal in size. PERICARDIUM No pericardial effusion. Jayden Barrett MD (Electronically Signed) Final Date:03 November 2017 16:39
[2017-11-03 17:36] LABS: HEMOGLOBIN A1C 5.8 % (4.3-6.0)
[2017-11-03] MEDS ORDERED: IOHEXOL 350 MG/ML 10 ML VIAL (for RAD DIAG) IVCONTRAST ONE (18:35)
[2017-11-03] MEDS ORDERED: ACETAMINOPHEN/HYDROcodone 325 MG/5 MG TAB PO ONE (23:00)
--- NOTE | 2017-11-03 23:49 | RADRPT ---
EXAM DATE/TIME: 11/03/2017 18:20 [facility] COMPARISON: US CAROTID ARTERIES, November 03, 2017, 11:35. INDICATIONS : Upper left extremity weakness. Follow up carotid ultrasound. IV CONTRAST: 75 cc Omnipaque 350 (iohexol) IV RADIATION DOSE: 42.22 CTDIvol (mGy) MEDICAL HISTORY : None SURGICAL HISTORY : None. ENCOUNTER: Initial ACUITY: 2 days PAIN SCALE: 0/10 LOCATION: neck Elevated flow velocities and ICA/CCA ratios have been found to correlate with increased degrees of vessel stenosis, calculated as percentage of diameter relative to a normal segment of distal ICA/CCA. TECHNIQUE: Volumetric scanning was performed using a multirow detector CT scanner. The data was post processed with a variety of visualization algorithms including full-volume maximum intensity projection, multip lanar sliding thin-slab reformation, curved-planar reformation, and surface-rendering techniques. Us ing automated exposure control and adjustment of the mA and/or kV according to patient size, radiatio n dose was kept as low as reasonably achievable to obtain optimal diagnostic quality images. DICOM f ormat image data is available electronically for review and comparison. FINDINGS: AORTIC ARCH: There is a three-vessel origin of the great vessels from the aorta. No evidence of ostial narrowing. RIGHT CAROTID: The common carotid artery is intact. Mild plaque within the right proximal internal carotid artery/bu lb. No significant stenosis. The external carotid artery is intact. LEFT CAROTID: The common carotid artery is intact. Mild to moderate plaque within the left bulb/proximal internal c arotid artery suggesting 40-50 % stenosis The external carotid artery is intact. VERTEBRALS: The vertebral arteries have a symmetric diameter. No stenotic lesions are seen. CONCLUSION: 1. No hemodynamically significant stenosis in either carotid artery. 2. Mild narrowing of the left internal carotid artery suggesting 40-50% stenosis. Jaspreet Petersen MD on November 03, 2017 at 23:44 Board Certified Radiologist. This report was verified electronically.
[2017-11-04] VITALS: BP 177/79; PULSE 61; RESP 20; TEMP 96.6; O2SAT 97
[2017-11-04 04:00] VITALS: BP 134/65; PULSE 48; RESP 20; TEMP 96; O2SAT 97
[2017-11-04] MEDS: HEPARIN SODIUM - SQ 10,000 UNITS/ML VIAL SQ SCH (05:11)
[2017-11-04 06:29] LABS: AUTOMATED NEUTROPHIL # 2.7 TH/MM3 (1.8-7.7); BASOPHIL % 0.6 % (0.0-2.0); EOSINOPHIL # 0.4 TH/MM3 (0-0.4); EOSINOPHIL % 8.7 % (0.0-4.0); HEMATOCRIT 37.9 % (39.0-51.0); HEMOGLOBIN 12.4 GM/DL (13.0-17.0); LYMPH % 26.5 % (9.0-44.0); LYMPHOCYTE # 1.3 TH/MM3 (1.0-4.8); MEAN CELL VOLUME 86.8 FL (80.0-100.0); MEAN CORPUSCULAR HEMOGLOBIN 28.5 PG (27.0-34.0); MEAN CORPUSCULAR HGB CONC 32.8 % (32.0-36.0); MONOCYTE # 0.5 TH/MM3 (0-0.9); NEUT % 53.2 % (16.0-70.0); PLATELET COUNT 211 TH/MM3 (150-450); RED BLOOD COUNT 4.37 MIL/MM3 (4.50-5.90); RED CELL DISTRIBUTION WIDTH 14.1 % (11.6-17.2); WHITE BLOOD COUNT 4.9 TH/MM3 (4.0-11.0)
[2017-11-04 06:44] LABS: CALCIUM 8.6 MG/DL (8.5-10.1)
[2017-11-04 06:45] LABS: BICARBONATE 24.4 MEQ/L (21.0-32.0)
[2017-11-04 06:49] LABS: CREATININE 0.86 MG/DL (0.60-1.30)
[2017-11-04] MEDS: INSULIN ASPART SUPPLEMENTAL SCALE SQ SCH ×2 (08:00→12:00)
[2017-11-04] MEDS: ASPIRIN 325 MG TAB PO SCH (08:16)
[2017-11-04] MEDS: SODIUM CHLORIDE 0.9% FLUSH 10 ML FLUSH IV FLUSH SCH (08:16)
[2017-11-04 08:28] VITALS: BP 158/69; PULSE 52; RESP 15; TEMP 96.3; O2SAT 98
[2017-11-04 10:22] LABS: CHOLESTEROL/ HDL RATIO 3.87 RATIO; HDL CHOLESTEROL 34.8 MG/DL (40.0-60.0)
[2017-11-04] MEDS ORDERED: ASPI81TA23 PO (11:44)
--- NOTE | 2017-11-04 11:44 | HHI.DCPOC ---
Discharge Care Plan Diagnosis: (1) TIA (transient ischemic attack) Goals to Promote Your Health * To prevent worsening of your condition and complications * To maintain your health at the optimal level Directions to Meet Your Goals Take your medications as prescribed Follow your dietary instruction Follow activity as directed Keep your appointments as scheduled Take your immunizations and boosters as scheduled If your symptoms worsen call your PCP, if no PCP go to Urgent Care Center or Emergency Room Smoking is Dangerous to Your Health. Avoid second hand smoke Call the 24-hour hour crisis hotline for domestic abuse at Anthony Cloeman MD Nov 04, 2017 11:44
--- NOTE | 2017-11-04 11:47 | HHI.PR ---
Subjective Remarks Nursing denies any deterioration since last night. However patient says he could not do MRI due to severe claustrophobia, wants to get MRI done as an outpatient at a facility that has a bigger machine. Patient feels fine, wants to go home. Objective Vital Signs Date Time Temp Pulse Resp B/P (MAP) Pulse Ox O2 Delivery O2 Flow Rate FiO2 11/04/17 08:28 96.3 52 15 158/69 (98) 98 11/04/17 04:00 96.0 48 20 134/65 (88) 97 11/04/17 00:00 96.6 61 20 177/79 (111) 97 11/03/17 20:00 96.0 66 20 163/89 (113) 98 11/03/17 18:14 16 11/03/17 16:22 98.1 48 25 159/74 (102) 11/03/17 16:00 44 11/03/17 15:00 42 11/03/17 14:00 44 11/03/17 13:21 42 11/03/17 13:21 42 16 152/76 (101) 99 11/03/17 12:00 44 I/O 11/03/17 11/03/17 11/03/17 11/04/17 11/04/17 11/04/17 06:59 14:59 22:59 06:59 14:59 22:59 Intake Total 30 ml 240 ml 120 ml Output Total 300 ml 1140 ml Balance 30 ml -300 ml -900 ml 120 ml Intake Oral 30 ml 240 ml 120 ml Output Urine Total 300 ml 1140 ml # Voids 1 3 2 # Bowel Movements 0 0 0 Result Diagram: 11/04/17 0440 11/04/17 0440 Objective Remarks No facial droop, no slurred speech, 5 out of 5 proximal upper extremity strength bilaterally, ambulating without difficulty. A/P Assessment and Plan CTA of the carotids is unremarkable for any significant hemodynamic stenosis or they have any surgical intervention. Echo was also unremarkable. We will discharge the patient on baby aspirin, to continue his home Lipitor. Patient is amenable to getting MRI of the brain as an outpatient under the care of his PCP. Will discharge patient a prescription for a Holter monitor the results of which he can relate to his primary care provider near [place]. Patient has met maximal benefit from hospitalization and is clinically stable for discharge. Anthony Coleman MD Nov 04, 2017 11:47
[2017-11-04] MEDS ORDERED: ATORVASTATIN 40 MG TAB PO ONE (12:00)
[2017-11-04 12:47] VITALS: BP 142/70; PULSE 60; RESP 16; TEMP 96.7; O2SAT 99
[2017-11-04] MEDS ORDERED: amLODIPine BESYLATE 5 MG TAB PO SCH (13:15)
[2017-11-04] MEDS ORDERED: ATORVASTATIN 40 MG TAB PO SCH (21:00)
== END 2017-11-04 13:49 | disposition home or self-care (01) ==
LOC: PHED 00:27 → PHEDA 02:28 → PHICU 04:10 → PH3A 16:30
PROVIDERS: ADMIT Hospitalist; ATTEND Hospitalist
DX: G45.9 Transient cerebral ischemic attack, unspecified (principal); I10 Essential (primary) hypertension; E78.00 Pure hypercholesterolemia, unspecified; H53.8 Other visual disturbances; F40.240 Claustrophobia; N40.0 Benign prostatic hyperplasia without lower urinary tract symptoms
CPT/HCPCS: 70450; 70498; 80048; 80061; 82948; 83036; 84484; 85025; 93005; 93306; 93880; 97161; 97165; 99285; G0378; G8987; G8988; G8989; J1644; Q9967